=== PATIENT | female | born 1940 | race Two or more races ===

== ENCOUNTER 2017-06-20 18:10 | Inpatient (IN) | payer MEDICARE, MEDICAID ==
[~2017-06-20] VITALS: Ht 162.6 cm; Wt 68.0 kg
--- NOTE | 2017-06-20 18:34 | Emergency Room Report ---
History of Present Illness General Chief Complaint: Multiple Trauma/Fall Source: Family Member Present Illness HPI This is a 76-year-old female who presented after increased bruising to the left side of her face as well as to her right lower extremity. Patient had a recent fall approximately 5 days ago. The patient did have increased bruising to her face as well as her right lower extremity and was sent in by physician for further evaluation. Patient had previously been noted to have MRIs of her head which showed a meningioma. Patient was also recently seen for increased facial droop. She had prior history of cirrhosis. Patient did notice having some increased bruising and discoloration to her right lower extremity Allergies: Coded Allergies: CELECOXIB (Verified Allergy, Unknown, 06/20/17) WARFARIN (Verified Allergy, Unknown, 06/20/17) Patient History Past Medical History: see triage record, other - cirrhosis Reviewed Nursing Documentation: PMH: Agreed, PSxH: Agreed Review of Systems All Other Systems: negative except mentioned in HPI Physical Exam Vital Signs Date Time Temp Pulse Resp B/P Pulse Ox O2 Delivery O2 Flow Rate FiO2 06/20/17 18:25 97.0 70 18 101/55 100 Room Air General Appearance: alert, moderate distress, Chronically Ill Neck: full range of motion Respiratory: chest non-tender, lungs clear Cardiovascular #1: normal peripheral pulses, regular rate, rhythm Musculoskeletal: swelling - bilateral bruising, right greater than left, left bka Medical Decision Making Diagnostic Impression: Primary Impression: Acute encephalopathy Additional Impressions: Lower extremity edema Facial contusion Anemia Cirrhosis Hip fracture, right ER Course The patient presented after a recent fall. Differential diagnosis included was not limited to neck fracture, CVA, close head injury, syncopal episode, basilar ischemia. Because of complexity of patient's case laboratory testing and imaging studies were ordered.Patient noted have evidence of the hepatic encephalopathy. Patient is also noted be somewhat anemic on laboratory testing. Patient noted to have exam consistent with ascites. I attempted to contact the patient's primary care physician. Laboratory studies were notable for elevated white blood count as well as a low hemoglobin. The white blood count elevation may be due to recent trauma however patient was given IV antibiotics empirically. Dr. Bermeo was contacted for inpatient management due to complexity of medical condition. Dr. Thomas Whiting was contacted for orthopedic consult Labs Test 06/20/17 22:35 White Blood Count 17.1 K/UL (4.8-10.8) Red Blood Count 2.46 M/UL (4.20-5.40) Hemoglobin 6.9 G/DL (12.0-16.0) Hematocrit 21.3 % (37.0-47.0) Mean Corpuscular Volume 87 FL (80-99) Mean Corpuscular Hemoglobin 28.3 PG (27.0-31.0) Mean Corpuscular Hemoglobin Concent 32.7 G/DL (32.0-36.0) Red Cell Distribution Width 17.2 % (11.6-14.8) Platelet Count 743 K/UL (150-450) Mean Platelet Volume 7.3 FL (6.5-10.1) Neutrophils (%) (Auto) % (45.0-75.0) Lymphocytes (%) (Auto) % (20.0-45.0) Monocytes (%) (Auto) % (1.0-10.0) Eosinophils (%) (Auto) % (0.0-3.0) Basophils (%) (Auto) % (0.0-2.0) Last Vital Signs Date Time Temp Pulse Resp B/P Pulse Ox O2 Delivery O2 Flow Rate FiO2 06/20/17 18:25 97.0 70 18 101/55 100 Room Air Status: unchanged Disposition: ADMITTED INPATIENT Condition: Serious Richard Ruff Jun 20, 2017 18:34
[2017-06-20 18:35] VITALS: BP 130/62
[2017-06-20] MEDS ORDERED: SENNA8.6 M2 PO (18:38)
[2017-06-20] MEDS ORDERED: LEVOTHYROXINE50 MCG ORAL (18:38)
[2017-06-20] MEDS ORDERED: FUROSEMIDE20 M1 ORAL (18:38)
[2017-06-20] MEDS ORDERED: SILDENAFIL20 MG ORAL (18:38)
[2017-06-20] MEDS ORDERED: LYRICA75 M1 ORAL (18:38)
[2017-06-20] MEDS ORDERED: CYMBALTA30 MG ORAL (18:38)
[2017-06-20] MEDS ORDERED: FERROUS SULFAT325 MG ORAL (18:38)
[2017-06-20] MEDS ORDERED: METOPROLOL TART25 MG ORAL (18:38)
[2017-06-20] MEDS ORDERED: ASPIR 8181 MG ORAL (18:38)
[2017-06-20] MEDS ORDERED: ATORVASTATIN CA40 MG ORAL (18:38)
[2017-06-20] MEDS ORDERED: PANTOPRAZOLE SO40 MG ORAL (18:38)
[2017-06-20] MEDS ORDERED: ELIQUIS5 MG PO (18:38)
[2017-06-20] MEDS ORDERED: VITAMIN B-1100 MG ORAL (18:39)
[2017-06-20 20:30] VITALS: BP 105/41
[2017-06-20 22:38] VITALS: BP 96/57
[2017-06-20] MEDS ORDERED: Miralax 17gm pkt ORAL PRN (22:45)
[2017-06-20] MEDS ORDERED: Enalaprilat 2.5mg/2ml Inj IV PRN (22:45)
[2017-06-20] MEDS ORDERED: DuoNeb 0.5-3(2.5)mg/3ml neb HHN PRN (22:45)
[2017-06-20] MEDS ORDERED: Ketorolac 30mg Inj IV PRN (22:45)
[2017-06-20] MEDS ORDERED: Morphine Sulfate 2mg/ml Inj IVP PRN (22:45)
[2017-06-20] MEDS ORDERED: Nitroglycerin Subl 0.4mg tab (Bottle Of 25) SL PRN (22:45)
[2017-06-20] MEDS ORDERED: Diltiazem 25mg/5ml IV PRN (22:45)
[2017-06-20 23:14] LABS: MEAN CORPUSCULAR HEMOGLOBIN 28.3 PG (27.0-31.0); MEAN CORPUSCULAR HGB CONC 32.7 G/DL (32.0-36.0); MEAN CORPUSCULAR VOLUME 87 FL (80-99); MEAN PLATELET VOLUME 7.3 FL (6.5-10.1); PLATELET COUNT 743 K/UL (150-450); RED BLOOD COUNT 2.46 M/UL (4.20-5.40); RED CELL DISTRIBUTION WIDTH 17.2 % (11.6-14.8); WHITE BLOOD COUNT 17.1 K/UL (4.8-10.8)
[2017-06-20] MEDS ORDERED: cefTRIAXone 1 GM in D5W 55 ML IVPB ONE (23:30)
[2017-06-20 23:32] LABS: TROPONIN I < 0.30 ng/mL (<=0.30)
[2017-06-20 23:36] LABS: INR 1.2 (0.9-1.1); PROTHROMBIN TIME 12.1 SEC (9.30-11.50)
[2017-06-20 23:37] LABS: ALANINE AMINOTRANSFERASE 8 U/L (3-33); ALBUMIN/GLOBULIN RATIO 1.3 (1.0-2.7); ANION GAP 11 (5-15); ASPARTATE AMINO TRANSFERASE 17 U/L (5-40); CALCIUM 8.3 mg/dL (8.6-10.2); CARBON DIOXIDE 22 mEQ/L (20-30); CHLORIDE 104 mEQ/L (98-107); CREATININE 1.2 mg/dL (0.5-0.9); HEMOLYSIS 3; POTASSIUM 5.1 mEQ/L (3.4-4.9); SODIUM 137 mEQ/L (135-145); TOTAL PROTEIN 5.3 g/dL (6.6-8.7)
[2017-06-20 23:58] LABS: BAND NEUTROPHILS % (MANUAL) 1 % (0-8); EOSINOPHILS % (MANUAL) 4 % (0-3); LYMPHOCYTES % (MANUAL) 14 % (20-45); NEUTROPHILS % (MANUAL) 74 % (45-75); NUCLEATED RED BLOOD CELLS 2 /100 WBC; TOTAL CELLS COUNTED 100
[2017-06-20 23:59] LABS: ANISOCYTOSIS 2+; BASOPHILS % (MANUAL) 0 % (0-2); PLATELET ESTIMATE INCREASED; PLATELET MORPHOLOGY NORMAL; POLYCHROMASIA 1+
[2017-06-21 00:08] VITALS: BP 89/41
[2017-06-21 01:00] VITALS: BP 98/52
[2017-06-21] MEDS ORDERED: DOCUSATE SODIU100 MG ORAL (02:32)
[2017-06-21] MEDS ORDERED: ciprofloxacin ORAL (02:32)
[2017-06-21] MEDS ORDERED: NOVOLOG100 UNIT/3 SUBQ (02:32)
[2017-06-21] MEDS ORDERED: POTASSIUM CHLOR ORAL (02:32)
[2017-06-21 04:00] VITALS: BP 123/88
--- NOTE | 2017-06-21 08:26 | History and Physical ---
History of Present Illness General Reason for Hospitalization: Multiple Trauma/Fall Present Illness Allergies: Coded Allergies: CELECOXIB (Verified Allergy, Unknown, 06/20/17) WARFARIN (Verified Allergy, Unknown, 06/20/17) Medication History Scheduled Apixaban (Eliquis), 5 MG PO BID, (Reported) Aspirin* (Aspir 81*), 81 MG ORAL DAILY, (Reported) Atorvastatin Calcium* (Atorvastatin Calcium*), 80 MG ORAL BEDTIME, (Reported) Docusate Sodium* (Docusate Sodium*), 100 MG ORAL TWICE A DAY, (Reported) Duloxetine Hcl* (Cymbalta*), 20 MG ORAL DAILY, (Reported) Ferrous Sulfate* (Ferrous Sulfate*), 325 MG ORAL DAILY, (Reported) Furosemide* (Lasix*), 20 MG ORAL DAILY, (Reported) Insulin Aspart* (Novolog*), 0 SUBQ BEFORE MEALS, (Reported) Levothyroxine Sodium* (Levothyroxine Sodium*), 50 MCG ORAL DAILY, (Reported) Metoprolol Tartrate* (Metoprolol Tartrate*), 25 MG ORAL EVERY 12 HOURS, ( Reported) Pantoprazole* (Pantoprazole*), 40 MG ORAL DAILY, (Reported) Pregabalin* (Lyrica*), 75 MG ORAL THREE TIMES A DAY, (Reported) Sennosides (Senna), Unknown Dose PO TID, (Reported) Sildenafil Citrate (Sildenafil), 20 MG ORAL DAILY, (Reported) Thiamine Hcl* (Vitamin B-1*), 100 MG ORAL DAILY, (Reported) [ciprofloxacin], TAB ORAL BID, (Reported) [potassium chlor], TAB ORAL DAILY, (Reported) Patient History Healthcare decision maker SHAWNA AVILA Resuscitation status Full Code Advanced Directive on File Yes Physical Exam Last 24 Hour Vital Signs Date Time Temp Pulse Resp B/P Pulse Ox O2 Delivery O2 Flow Rate FiO2 06/21/17 07:36 95 18 Room Air 06/21/17 04:00 96.1 100 20 123/88 98 Room Air 06/21/17 03:58 84 06/21/17 01:00 96.8 78 20 98/52 97 Room Air 06/21/17 00:35 97.6 78 16 89/41 100 Room Air 06/21/17 00:08 97.6 78 16 89/41 100 Room Air 06/20/17 22:38 98.2 87 18 96/57 100 Room Air 06/20/17 20:30 97.2 85 16 105/41 99 Room Air 06/20/17 18:35 88 20 130/62 95 Room Air 06/20/17 18:25 97.0 70 18 101/55 100 Room Air Intake and Output 06/20/17 06/21/17 19:00 07:00 Intake Total 50 ml Balance 50 ml Intake Oral 50 ml Laboratory Tests Test 06/20/17 22:35 06/21/17 00:00 White Blood Count 17.1 K/UL (4.8-10.8) H Red Blood Count 2.46 M/UL (4.20-5.40) L Hemoglobin 6.9 G/DL (12.0-16.0) *L Hematocrit 21.3 % (37.0-47.0) L Mean Corpuscular Volume 87 FL (80-99) Mean Corpuscular Hemoglobin 28.3 PG (27.0-31.0) Mean Corpuscular Hemoglobin Concent 32.7 G/DL (32.0-36.0) Red Cell Distribution Width 17.2 % (11.6-14.8) H Platelet Count 743 K/UL (150-450) H Mean Platelet Volume 7.3 FL (6.5-10.1) Neutrophils (%) (Auto) % (45.0-75.0) Lymphocytes (%) (Auto) % (20.0-45.0) Monocytes (%) (Auto) % (1.0-10.0) Eosinophils (%) (Auto) % (0.0-3.0) Basophils (%) (Auto) % (0.0-2.0) Differential Total Cells Counted 100 Neutrophils % (Manual) 74 % (45-75) Lymphocytes % (Manual) 14 % (20-45) L Monocytes % (Manual) 7 % (1-10) Eosinophils % (Manual) 4 % (0-3) H Basophils % (Manual) 0 % (0-2) Band Neutrophils 1 % (0-8) Nucleated Red Blood Cells 2 /100 WBC Platelet Estimate Increased H Platelet Morphology Normal Polychromasia 1+ Anisocytosis 2+ Prothrombin Time 12.1 SEC (9.30-11.50) H Prothromb Time International Ratio 1.2 (0.9-1.1) H Activated Partial Thromboplast Time 27 SEC (23-33) Sodium Level 137 mEQ/L (135-145) Potassium Level 5.1 mEQ/L (3.4-4.9) H Chloride Level 104 mEQ/L (98-107) Carbon Dioxide Level 22 mEQ/L (20-30) Anion Gap 11 (5-15) Blood Urea Nitrogen 70 mg/dL (7-23) H Creatinine 1.2 mg/dL (0.5-0.9) H Estimat Glomerular Filtration Rate mL/min (>60) Glucose Level 322 mg/dL (74-106) H Calcium Level 8.3 mg/dL (8.6-10.2) L Total Bilirubin 0.7 mg/dL (0.0-1.2) Aspartate Amino Transf (AST/SGOT) 17 U/L (5-40) Alanine Aminotransferase (ALT/SGPT) 8 U/L (3-33) Alkaline Phosphatase 66 U/L (35-104) Troponin I Pending Total Protein 5.3 g/dL (6.6-8.7) L Albumin 3.0 g/dL (3.5-5.2) L Globulin 2.3 g/dL Albumin/Globulin Ratio 1.3 (1.0-2.7) Thyroid Stimulating Hormone (TSH) 2.730 uIU/mL (0.300-4.500) Ammonia 31 umol/L (11-51) Height (Feet): 5 Height (Inches): 4.00 Weight (Pounds): 150 Medications Current Medications Medications (Trade) Dose Ordered Sig/Cheli Route PRN Reason Start Time Stop Time Status Last Admin Dose Admin Acetaminophen (Tylenol) 650 mg Q4H PRN ORAL FEVER 06/20/17 22:45 07/20/17 22:44 Albuterol/ Ipratropium (DuoNeb 0.5-3(2.5)mg/3ml) 3 ml EVERY 4 HOURS PRN HHN Shortness of Breath 06/20/17 22:45 06/25/17 22:44 Aspirin (ASA) 162 mg DAILY ORAL 06/21/17 09:00 07/21/17 08:59 Atorvastatin Calcium (Lipitor) 80 mg BEDTIME ORAL 06/21/17 21:00 07/21/17 20:59 Diltiazem HCl (Cardizem) 10 mg EVERY HOUR PRN IV heart rate more than 120, 06/20/17 22:45 07/20/17 22:44 Duloxetine HCl (Cymbalta) 20 mg DAILY ORAL 06/21/17 09:00 07/21/17 08:59 Enalaprilat (Vasotec) 2.5 mg EVERY 6 HOURS PRN IV sbp more than 160 06/20/17 22:45 07/20/17 22:44 Heparin Sodium (Porcine) (Heparin 5000 units/ml) 5,000 units EVERY 12 HOURS SUBQ 06/21/17 09:00 07/21/17 08:59 Ketorolac Tromethamine (Toradol 30mg) 30 mg Q6HR PRN IV moderate pain ( 4-6) 06/20/17 22:45 06/25/17 22:44 UNV Levothyroxine Sodium (Synthroid) 50 mcg DAILY@0630 ORAL 06/21/17 06:30 07/21/17 06:29 Morphine Sulfate (Morphine Sulfate) 2 mg EVERY 4 HOURS PRN IVP severe Pain (Pain Scale 7-10) 06/20/17 22:45 06/27/17 22:44 Nitroglycerin (Ntg) 0.4 mg Every 5 Minutes PRN SL Prn Chest Pain 06/20/17 22:45 07/20/17 22:44 Ondansetron HCl (Zofran) 4 mg Q6H PRN IVP Nausea & Vomiting 06/20/17 22:45 07/20/17 22:44 Pantoprazole (Protonix) 40 mg DAILY ORAL 06/21/17 09:00 07/21/17 08:59 Polyethylene Glycol (Miralax) 17 gm DAILYPRN PRN ORAL Constipation 06/20/17 22:45 07/20/17 22:44 Temazepam (Restoril) 15 mg HSPRN PRN ORAL Insomnia 06/20/17 22:45 06/27/17 22:44 Shara Thomas NP (Vanchtein) Jun 21, 2017 08:26
[2017-06-21] MEDS ORDERED: Heparin 5000 units/ml inj SUBQ SCH (09:00)
[2017-06-21] MEDS ORDERED: Aspirin Baby 81mg ORAL SCH (09:00)
[2017-06-21] MEDS ORDERED: Aspirin EC 81mg tab ORAL SCH (09:00)
--- NOTE | 2017-06-21 09:56 | Diagnostic Imaging Report ---
Indication: Abdominal pain Technique: CT scan of the abdomen and pelvis utilizing automated exposure control without intravenous or oral contrast. Axial, sagittal and coronal images were obtained. CT dose: Total DLP 906 mGycm; CTDI vol 17.1 mGy Comparison: None Findings: Evaluation of the solid organs is limited without intravenous contrast material. There is atelectasis nonspecific interstitial opacities in the partially visualized lung bases. The liver and spleen are enlarged. Cholecystectomy clips are present. The pancreas is grossly unremarkable. Adrenal glands are grossly unremarkable. 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 There is no hydronephrosis. Atherosclerotic changes are present. The abdominal aorta is normal in caliber. There is moderate to large ascites. There is gastric distention with debris. The small bowel loops are normal in caliber. Moderate colonic stool is present. There is colonic diverticulosis without definitive evidence of diverticulitis. There is no evidence of appendicitis. Uterine calcifications are suggestive of fibroids. The bladder is not well distended. There is a fracture deformity of the right proximal femur in the anterior trochanteric location, acuity indeterminate with adjacent partially visualized complex collection measuring 7.5 x 3.8 cm with ossific fragments and soft tissue gas. There is also soft tissue swelling of the partially visualized right thigh. Mild chronic appearing compression deformity is seen of L3. Degenerative changes of the spine are noted. There is a paraumbilical hernia containing fat and fluid. There is diffuse subcutaneous edema. Impression: Moderate to large ascites. Clinical correlation recommended. Acuity indeterminate but probably nonacute fracture deformity of the right proximal femur with a partially visualized 7.5 x 3.8 cm complex collection containing ossific fragments and soft tissue gas. Subcutaneous swelling of the right thigh partially visualized. A superimposed infection cannot be excluded. Clinical correlation recommended. Colonic diverticulosis. Cholecystectomy. Hepatosplenomegaly. Gastric distention with debris. Small angiomyolipoma of the right kidney. Cardiomegaly. Atherosclerotic changes. Calcified uterine fibroids. Multiloculated umbilical hernia with ascites. Other findings as above. The CT scanner at [facility] is accredited by the [employer] and the scans are performed using protocols designed to limit radiation exposure to as low as reasonably achievable to attain images of sufficient resolution adequate for diagnostic evaluation.
[2017-06-21] MEDS ORDERED: Tubing IV Secondary IV ONE (10:06)
[2017-06-21] MEDS ORDERED: NS 275ml ONE (10:06)
--- NOTE | 2017-06-21 10:34 | Diagnostic Imaging Report ---
Indication: Altered mental status Technique: Continuous helical CT scanning of the head was performed utilizing automated exposure control without intravenous contrast material. Axial and coronal reconstructions were obtained. Comparison: None CT dose: Total DLP 1523 mGycm; CTDI vol 70.4 mGy Findings: There is no acute hyperdense hemorrhage or focal cortical edema. There is a small area of left posterior temporal/parietal low density and volume loss suggestive of encephalomalacia. Atrophy is noted. Periventricular and subcortical hypoattenuation are seen. An old lacunar infarct of the left cerebellum is suggested. There is questionable left posterior hypodense subdural fluid measuring 2 mm in thickness. Bilateral basal ganglia calcifications are seen. There is an old infarct of the right caudate head. There is dural calcification and asymmetric calvarial hyperostosis, left greater than right. Right mastoid air cells and visualized paranasal sinuses are clear. There is no skull fracture. There is focal left frontal scalp swelling. Postsurgical changes of the left mastoid are seen. Impression: No acute hyperdense hemorrhage or focal cortical edema. MRI may be obtained for further evaluation. Atrophy and nonspecific periventricular and subcortical hypoattenuation suggestive of chronic ischemic microvascular changes. Small area of left posterior temporal/parietal encephalomalacia suggestive of an old infarct. 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 Questionable left posterior subpleural hypodense fluid measuring 2 mm in thickness without mass effect if real. Possibility of chronic subdural fluid cannot be completely excluded. Correlation with MRI recommended as indicated. Other findings as above. The CT scanner at [facility] is accredited by the [employer] and the scans are performed using protocols designed to limit radiation exposure to as low as reasonably achievable to attain images of sufficient resolution adequate for diagnostic evaluation.
[2017-06-21] MEDS ORDERED: Atorvastatin 80mg tab ORAL SCH (21:00)
--- NOTE | 2017-06-22 21:45 | Consultation ---
DATE OF CONSULTATION: 06/21/2017 CHIEF COMPLAINT: Right hip pain. HISTORY OF PRESENT ILLNESS: The patient is a 76-year-old female, who was admitted with a chief complaint of right hip pain. She had a CT scan, which showed a right hip fracture. Orthopedic consultation was obtained for further care and recommendation. PAST MEDICAL HISTORY: Cirrhosis and anemia. PAST SURGICAL HISTORY: Reviewed from the intake chart. MEDICATIONS: Reviewed from the intake chart. PHYSICAL EXAMINATION: GENERAL: The patient is alert. EXTREMITIES: She has pain with internal and external rotation on the right. Right leg is slightly short and internally rotated. Posterior calf is soft. Dorsalis pedis +2. IMAGING STUDIES: CT scan shows two-part intertrochanteric hip fracture. ASSESSMENT: Right two-part intertrochanteric hip fracture. DISCUSSION: At this point, we will try to medically optimize her for surgery hopefully on Friday. The patient will require open reduction and internal fixation with device. She is at increased risk of infection, as well as nonunion. Hamlet Whiting M.D. DR: FREEMAN JOB#: [id number] CC:
[2017-06-23 13:18] LABS: OTHERS PATHOLOGIST COMMENT
--- NOTE | 2017-06-23 15:40 | Discharge Summary ---
Discharge Summary Hospital Course Date of Admission Jun 20, 2017 at 20:41 Date of Discharge Jun 21, 2017 at 10:07 Admitting Diagnosis generalized weakness, recurrent fall HPI Ileana Jones is a 76 year old female who was admitted on Jun 20, 2017 at 20:41 for Generalized Weakness, Recurrent Fall Hospital Course DC SUMMARY #[id number] Discharge Discharge Disposition Patient signed AMA Discharge Diagnoses: Discharge Instructions Discharge Instructions Special Instructions I have been assigned to complete a D/C Summary on this account. I was not involved in the patient management William Castillo)Shara NP Jun 23, 2017 15:40
--- NOTE | 2017-06-24 22:15 | Discharge Summary 2 SIG ---
DATE OF ADMISSION: 06/20/2017 DATE OF DISCHARGE: 06/21/2017 REASON FOR ADMISSION: 76-year-old female with history of cirrhosis, presented after a fall which occurred five days ago. The patient reported facial bruising and right lower extremity bruising. The patient with a history of prior meningioma seen on MRI, chronically ill looking, unable to provide information, The patient had a prior history of cirrhosis, and her doctor sent her for evaluation. Workup in the emergency room revealed no fever. Vital signs were stable. Blood pressure was stable. Pulse oximetry was stable on room air. WBC -17.1, hemoglobin-6.9, and hematocrit- 21.3. Blood sugar -322. The patient was given empiric antibiotic and pancultured. LFTs were within normal limits. Clinical exam was consistent with ascites. BUN -70 and creatinine -1.2. The patient undergone CT of the head, which revealed no acute hyperdense hemorrhage or focal cortical edema, but demonstrated small area of left posterior temporal/parietal encephalomalacia suggestive of an old lacunar infarct of the right caudate head and left cerebellum. Questionable left posterior subpleural hypodense fluid measuring 2 mm in thickness without mass effect , possibility of chronic subdural fluid cannot be completely excluded. CT of the abdomen and pelvis revealed fracture deformity of the right proximal femur in the anterior trochanteric location, accurately undetermined with adjacent partially visualized complex collection measuring 7.5 x 3.8 cm with ossific fragments and soft tissue gas, mild chronic-appearing compression deformity was seen at L3, moderate to large ascites, subcutaneous swelling of the right thigh partially visualized. A superimposed infection cannot be excluded. Colonic diverticulosis. Hepatosplenomegaly. Multiloculated umbilical hernia with ascites. LFTs were within stable limits. Ammonia level- 31. Troponin negative. Albumin-3. INR - 1.2. Platelets - 743,000. The patient was admitted for further management. ADMITTING DIAGNOSES: 1. Acute encephalopathy. 2. Facial contusion. 3. Right intertrochanteric hip fracture. 4. Anemia. 5. Cirrhosis with ascites. 6. Lower extremity edema. Hospital Course: The patient was admitted to [facility] for further management. Neurology consult was requested along with the GI consult. Orthopedic surgeon already seen the patient and recommended to schedule her for surgery. The patient needed open reduction and internal fixation. The patient was required to get medically optimized and get ready for surgery. The patient was started on IV fluids. BUN - 70 and creatinine -1.2. Pain management addressed and provided. CBC in am ordered, family declined blood work. Blood sugar was managed with sliding scale of insulin. DVT prophylaxis provided. The patient was started on aspirin. Gastrointestinal prophylaxis provided. 2D echo was ordered. Supplemental oxygen provided as needed to keep saturation above 92%. Pulse oximetry was stable on room air. Pulmonary toilet provided as needed. Statin continued. Home medication were resumed. The patient's son decided to sign mom against medical advice at 7:10 in the morning of 06/21/17. Risks and consequences of signing against medical advice were explained to the family and the patient. Son signed AMA form. The patient left the unit by the wheelchair. Son stated that he will take his mother to [facility]. DISCHARGE DIAGNOSES: 1. Acute encephalopathy. 2. Facial contusion. 3. Right intertrochanteric hip fracture. 4. Anemia. 5. Cirrhosis with ascites. 6. Lower extremity edema. Pastora Bermeo M.D. I have been assigned to dictate discharge summary on this account and I was not involved in the patient's management. Shara Corbettlucas N.PMallika DR: AISSATOU JOB#: [id number] CC: JAMES
== END 2017-06-21 10:07 | disposition left against medical advice (07) | DRG 535 ==
LOC: EMR 18:33 → 2W 20:41 → EDBEDREQ 22:29 → 2W 06-21 00:45
DX: S72.141A Displaced intertrochanteric fracture of right femur, initial encounter for closed fracture (principal); G93.40 Encephalopathy, unspecified; R18.8 Other ascites; K74.60 Unspecified cirrhosis of liver; D64.9 Anemia, unspecified; S00.83XA Contusion of other part of head, initial encounter; K42.9 Umbilical hernia without obstruction or gangrene; W19.XXXA Unspecified fall, initial encounter; K57.90 Diverticulosis of intestine, part unspecified, without perforation or abscess without bleeding; Z88.8 Allergy status to other drugs, medicaments and biological substances; Z86.73 Personal history of transient ischemic attack (TIA), and cerebral infarction without residual deficits
CPT/HCPCS: 36415; 70450; 74176; 80053; 82140; 82962; 84443; 84484; 85007; 85025; 85610; 85730; 86850; 86900; 86901; 94664